=== PATIENT | male | born 1985 | race Caucasian/White ===

== ENCOUNTER 2016-10-10 19:54 | Emergency (ER) | payer SELFPAY ==
[2016-10-10 19:57] VITALS: BP 110/78; PULSE 109; RESP 22; TEMP 98.4; O2SAT 96
[2016-10-10 20:06] VITALS: BP 127/66; PULSE 96; RESP 18; TEMP 98.1; O2SAT 97
--- NOTE | 2016-10-10 20:08 | PD ---
HPI Chief Complaint: Laceration/Skin Injury Time Seen by Provider: 20:04 Travel History International Travel<30 days: No Contact w/Intl Traveler<30days: No Traveled to known affect area: No History of Present Illness HPI 30-year-old male presents to the emergency department for evaluation of laceration to left forearm that occurred just prior to arrival. Patient states he was cutting a tree limb with a chainsaw when the chainsaw bounced off of the limb and cut his left forearm. States that the chainsaw was very dull. Patient complains of pain at this site of the laceration. Denies any numbness or tingling, weakness, decreased range of motion. Unsure of last tetanus vaccination. No other complaints. PFSH Past Medical History ADHD: Yes Asthma: Yes (CHILDHOOD) Heart Rhythm Problems: Yes (HEART MURMUR) Cancer: No Cardiovascular Problems: Yes (HEART MURMER) Diminished Hearing: No Endocrine: No Genitourinary: No Immune Disorder: No Musculoskeletal: No Neurologic: No Psychiatric: No Reproductive: No Respiratory: No Past Surgical History Oral Surgery: Yes (ENDODONTIC SURGERY) Other Surgery: Yes (PLASTIC SURGERY TO FACE, HEMMHROID PROCEDURE) Social History Alcohol Use: Yes (occaisional) Tobacco Use: Yes (3 cigarettes) Substance Use: No Allergies-Medications (Allergen,Severity, Reaction): Coded Allergies: No Known Allergies (Verified , 10/10/16) Reported Meds & Prescriptions Reported Meds & Active Scripts Active No Active Prescriptions or Reported Medications Review of Systems Except as stated in HPI: all other systems reviewed are Neg Physical Exam Narrative GENERAL: Well-nourished and well-developed pleasant patient in no acute distress who is nontoxic appearing. SKIN: Warm and dry, Superficial laceration and abrasion to volar left forearm. I am able to obtain a bloodless view of the base of the laceration and there is no foreign body visualized. HEAD: Normocephalic and atraumatic. EYES: No injection, drainage, or hyphema noted. PERRLA. EOMI. ENT: No nasal drainage noted. Oropharynx is clear and the TMs are normal with good landmarks. NECK: Supple and the trachea is midline. CARDIOVASCULAR: Regular rate and rhythm. RESPIRATORY: Breath sounds are equal bilaterally with no accessory muscle use, wheezing, rhonchi, or crackles. MUSCULOSKELETAL: Radial pulses are 2+ bilaterally. No obvious deformities, swelling, cyanosis, or ecchymosis is present throughout the upper and lower extremities. Patient has full range of motion without any signs of neurovascular compromise. Strength is intact. NEUROLOGICAL: Awake, alert, and oriented. Normal speech and gait. Cranial nerves are grossly intact. Data Data Last Documented VS Vital Signs Date Time Temp Pulse Resp B/P Pulse Ox O2 Delivery O2 Flow Rate FiO2 10/10/16 20:06 98.1 96 18 127/66 97 Room Air Orders Lidocai-Epi 1%-1:100,000 Inj (Xylocaine- (10/10/16 20:15) Tetanus/Diphtheria Tox Adult (Tetanus/Di (10/10/16 20:15) MDM Medical Decision Making Medical Screen Exam Complete: Yes Emergency Medical Condition: Yes Differential Diagnosis Laceration versus superficial versus deep versus abrasion Narrative Course 30-year-old male presents to the emergency department for evaluation of laceration to left forearm secondary to a dull chainsaw. Patient is afebrile, vital signs are stable. Left upper extremity is neurovascularly intact. No foreign body visualized. This is a laceration that is obviously caused by a dull blade with some element of abrasion mixed with laceration. See procedure narrative for further details. Tetanus vaccination is updated here in the ED. Patient will be placed on Keflex prophylactically. Discussed proper wound care techniques. Advised follow-up with his PCP. Patient verbalizes understanding and agreement with treatment plan. Procedures Procedure Narrative LACERATION LOCATION: Volar left forearm LENGTH: 7 cm NUMBER OF STITCHES/VAISHNAVI: 14 sutures REPAIR: The area of the laceration was prepped with Betadine and sterilely draped. The laceration was infiltrated with 1% lidocaine with epinephrine. The wound was copiously irrigated and explored without evidence of foreign body , tendon injury or neurovascular injury. Devitalized tissue was debrided. The wound was closed using 4. 0 Ethilon. This was a single layer repair. Antibiotic ointment and a sterile dressing was applied. The patient was advised to keep the dressing clean and dry. Patient tolerated the procedure well. Diagnosis Primary Impression: Laceration of forearm Qualified Code: S51.812A - Laceration of forearm, left, initial encounter Referrals: Primary Care Physician Patient Instructions: General Instructions, Laceration (ED) Additional Instructions: Wash gently with soap and water. Apply topical antibiotic ointment twice daily. Have sutures removed in 7 days. Take medication as prescribed with food and a full glass of water. Follow-up with your Primary Care Physician. Return to the ED for any acute worsening of symptoms. Med/Other Pt SpecificInfo: Prescription(s) given Scripts Naproxen 500 Mg [id number] Mg PO BID 7 Days Ref 0 Prov:Misael Garay MD 10/10/16 Cephalexin (Keflex)500 Mg [id number] Mg PO Q8H 7 Days Ref 0 Prov:Misael Garay MD 10/10/16 Disposition: 01 DISCHARGE HOME Condition: Stable Ael Mcleod October 10, 2016 20:08
[2016-10-10] MEDS ORDERED: TETANUS/DIPHTHERIA TOXOID ADULT 0.5 ML VIAL IM ONE (20:15)
[2016-10-10] MEDS ORDERED: LIDOCAINE 1%/EPINEPHrine 1:100,000 SOLN 20 ML VIAL INFIL ONE (20:15)
[2016-10-10] MEDS ORDERED: CEPH-460 PO (21:04)
[2016-10-10] MEDS ORDERED: NAPR500T PO (21:04)
== END 2016-10-10 21:11 | disposition home or self-care (01) ==
LOC: PHEFT 19:54
DX: S51.812A Laceration without foreign body of left forearm, initial encounter (principal); J45.909 Unspecified asthma, uncomplicated; F17.210 Nicotine dependence, cigarettes, uncomplicated; Z23 Encounter for immunization; W29.3XXA Contact with powered garden and outdoor hand tools and machinery, initial encounter; Y93.H9 Activity, other involving exterior property and land maintenance, building and construction; Y92.9 Unspecified place or not applicable; Y99.8 Other external cause status
CPT/HCPCS: 12002; 90471; 90714

== ENCOUNTER 2017-06-25 13:04 | Emergency (ER) | payer SELFPAY ==
[~2017-06-25] VITALS: Ht 170.2 cm; Wt 80.5 kg
[~2017-06-25 13:04] MED LIST: CEPH-460 PO; NAPR500T2 PO
[2017-06-25 13:09] VITALS: BP 140/75; PULSE 93; RESP 16; TEMP 97.8; O2SAT 98
--- NOTE | 2017-06-25 13:20 | PD ---
HPI Chief Complaint: Skin Problem Time Seen by Provider: 13:17 Travel History International Travel<30 days: No Contact w/Intl Traveler<30days: No Traveled to known affect area: No History of Present Illness HPI 31-year-old male here with an area of skin redness to left axilla. He's had a small bump in his left axilla for several years. Over the past 3 days it has become increasingly large, painful, reddened, throbbing, constant, worse with palpation. Denies drainage, fevers or chills. No other complaints. PFSH Past Medical History ADHD: Yes Asthma: Yes (CHILDHOOD) Heart Rhythm Problems: Yes (HEART MURMUR) Cancer: No Cardiovascular Problems: Yes (HEART MURMER) Diminished Hearing: No Endocrine: No Genitourinary: No Immune Disorder: No Musculoskeletal: No Neurologic: No Psychiatric: No Reproductive: No Respiratory: No Past Surgical History Oral Surgery: Yes (ENDODONTIC SURGERY) Other Surgery: Yes (PLASTIC SURGERY TO FACE, HEMMHROID PROCEDURE) Social History Alcohol Use: Yes (occaisional) Tobacco Use: Yes (/2 PPD) Substance Use: No Allergies-Medications (Allergen,Severity, Reaction): Coded Allergies: No Known Allergies (Verified Adverse Reaction, Unknown, 06/25/17) Reported Meds & Prescriptions Reported Meds & Active Scripts Active Ibuprofen 800 Mg Tab 800 Mg PO Q6HR PRN Keflex (Cephalexin) 500 Mg Capsule 500 Mg PO TID 10 Days Bactrim DS (Sulfamethoxazole-Trimethoprim) 800-160 Mg Tab 1 Tab PO BID Naproxen 500 Mg Tab 500 Mg PO BID 7 Days Keflex (Cephalexin) 500 Mg Cap 500 Mg PO Q8H 7 Days Review of Systems Except as stated in HPI: all other systems reviewed are Neg Physical Exam Narrative GENERAL: Well-nourished male in no acute distress SKIN: Warm and dry. In the left axilla there is a 2 cm fluctuant infected cystic lesion with some surrounding cellulitic changes. HEAD: Atraumatic. Normocephalic. EYES: Pupils equal and round. No scleral icterus. No injection or drainage. ENT: No nasal bleeding or discharge. Mucous membranes pink and moist. NECK: Trachea midline. No JVD. CARDIOVASCULAR: Regular rate and rhythm. No murmur appreciated. RESPIRATORY: No accessory muscle use. Clear to auscultation. Breath sounds equal bilaterally. Data Data Last Documented VS Vital Signs Date Time Temp Pulse Resp B/P (MAP) Pulse Ox O2 Delivery O2 Flow Rate FiO2 06/25/17 13:09 97.8 93 16 140/75 (96) 98 Orders Orders Wound Culture And Gram Stain (06/25/17 13:17) Lidocaine 1% Inj (Xylocaine 1% Inj) (06/25/17 13:30) Ed Discharge Order (06/25/17 13:55) MDM Medical Decision Making Medical Screen Exam Complete: Yes Emergency Medical Condition: Yes Medical Record Reviewed: Yes Differential Diagnosis Infected sebaceous cyst, abscess, carbuncle, cellulitis Narrative Course Plan is for incision and drainage for which she verbally consents. Wound culture performed. The patient will be discharged with Bactrim and Keflex. Procedures Procedure Narrative INCISION AND DRAINAGE OF INFECTED CYST: The area was prepped and was sterilely draped. A subcutaneous wheal of 1 % Xylocaine with a total number 6 mL was used to anesthetize the area. The area was properly anesthetized. A number 11 scalpel was used to make a 1 -cm incision across the area of the abscess. Cultures were obtained. The abscess was drained an irrigated with normal saline. Diagnosis Primary Impression: Infected cyst of skin Additional Impression: Cellulitis of left arm Additional Instructions: Medication as prescribed. Warm compresses several times a day 10-15 minutes at time. Follow-up with primary care physician and return for any acutely new or worsening symptoms. Med/Other Pt SpecificInfo: Prescription(s) given, Wound Care Scripts Ibuprofen (Ibuprofen) 800 Mg Tab 800 MG PO Q6HR Y for PAIN, #40 TAB 0 Refills Prov: Ellie Lau MD 06/25/17 Cephalexin (Keflex) 500 Mg Capsule 500 MG PO TID for Infection for 10 Days, CAP 0 Refills Prov: Ellie Lau MD 06/25/17 Sulfamethoxazole-Trimethoprim (Bactrim DS) 800-160 Mg Tab 1 TAB PO BID for Infection, #20 TAB 0 Refills Prov: Ellie Lau MD 06/25/17 Disposition: 01 DISCHARGE HOME Condition: Stable Torsten العلي Jun 25, 2017 13:20
[2017-06-25] MEDS ORDERED: BACT800T5 PO (13:21)
[2017-06-25] MEDS ORDERED: CEPH-460 PO (13:21)
[2017-06-25] MEDS ORDERED: LIDOCAINE HCL 1% 20 ML VIAL INFIL ONE (13:30)
[2017-06-25] MEDS ORDERED: IBUP1TAB7 PO (13:55)
== END 2017-06-25 14:32 | disposition home or self-care (01) ==
LOC: PHEFT 13:04
DX: L72.9 Follicular cyst of the skin and subcutaneous tissue, unspecified (principal); L03.114 Cellulitis of left upper limb; B96.89 Other specified bacterial agents as the cause of diseases classified elsewhere
CPT/HCPCS: 10060; 86403; 87070; 87185